=== PATIENT | male | born 1960 | race Caucasian/White ===

== ENCOUNTER 2024-09-18 20:24 | Emergency (ER) | payer OTHER, MEDICARE ==
[~2024-09-18] VITALS: Ht 177.8 cm; Wt 79.4 kg
[2024-09-18 20:45] VITALS: BP 137/95
[2024-09-18] MEDS ORDERED: Ibuprofen 400 MG Tab PO ONE (20:55)
[2024-09-18] MEDS ORDERED: Amoxicillin/Clavulanate K 875 MG Tab PO ONE (20:55)
[2024-09-18] MEDS ORDERED: RX Prepack 6 Tabs Oxycodone 5mg UD ONE (20:55)
[2024-09-18] MEDS ORDERED: Percocet 5-3251 EACH PO (22:10)
[2024-09-18] MEDS ORDERED: AMOCLA875 PO (22:10)
== END 2024-09-18 23:10 | disposition home or self-care (01) ==
LOC: ER 20:24
DX: S52.692A Other fracture of lower end of left ulna, initial encounter for closed fracture (principal); S61.452A Open bite of left hand, initial encounter; W54.0XXA Bitten by dog, initial encounter
CPT/HCPCS: 29125; 73090; 73100; 73130; 99283-25; A9270

== ENCOUNTER 2024-11-23 10:16 | Day surgery (SDC) | payer MEDICARE ==
[~2024-11-23] VITALS: Ht 177.8 cm; Wt 79.3 kg
[~2024-11-23 10:16] MED LIST: AMOCLA875 PO; Percocet 5-3251 EACH PO
[2024-11-23] MEDS ORDERED: CHANTIX1 MG (10:31)
[2024-11-23] MEDS ORDERED: OMEP20ER (10:31)
[2024-11-23] MEDS ORDERED: Lactated Ringer's 1,000 ML IV ONE ×2 (11:21→12:03)
[2024-11-23] MEDS ORDERED: propofoL 50 ML IV ONE (12:03)
--- NOTE | 2024-11-23 13:03 | NUR ---
11/23/24 8543 NASRIN JARQUIN PT PRESENTED TODAY WITH ARM CAST LEFT ARM AND BRUSED HIPS FROM DOG ATTACK. END NOTE
[2024-11-23 13:34] VITALS: BP 111/88
--- NOTE | 2024-11-23 13:47 | NUR ---
11/23/24 1347 Annemarie Becerra PT DENIED PAIN, NO C/O NAUSEA. PT ABLE TO TOLERATE FLUIDS WELL. PT'S AT BEDSIDE. PT EDUCATION PROVIDED. ALL QUESTIONS ANSWERED, CONCERNS ADDRESSED.
== END 2024-11-23 13:44 | disposition home or self-care (01) ==
LOC: ORSCSDS 10:16
PROVIDERS: Internal Medicine Gastroenterology
PROC: 0DB98ZX Excision of Duodenum, Via Natural or Artificial Opening Endoscopic, Diagnostic (ICD-10-PCS; principal; 2024-11-23 11:30)
PROC: 0DBL8ZX Excision of Transverse Colon, Via Natural or Artificial Opening Endoscopic, Diagnostic (ICD-10-PCS; principal; 2024-11-23 11:30)
DX: Z12.11 Encounter for screening for malignant neoplasm of colon (principal); R19.5 Other fecal abnormalities; K57.30 Diverticulosis of large intestine without perforation or abscess without bleeding; R13.10 Dysphagia, unspecified; D12.3 Benign neoplasm of transverse colon; F17.210 Nicotine dependence, cigarettes, uncomplicated; Z79.899 Other long term (current) drug therapy
CPT/HCPCS: 88305; J2704; J7120

== ENCOUNTER 2025-07-31 16:34 | Emergency (ER) | payer MEDICARE ==
[~2025-07-31] VITALS: Ht 177.8 cm; Wt 80.7 kg
[~2025-07-31 16:34] MED LIST changes: +CHANTIX1 MG; +OMEP20ER
[2025-07-31 19:28] VITALS: BP 119/94
[2025-07-31] MEDS ORDERED: RX Prepack 6 Tabs Oxycodone 5mg UD ONE (19:55)
[2025-07-31] MEDS ORDERED: Ketorolac Tromethamine 15mg Vial IM ONE (19:55)
== END 2025-07-31 20:16 | disposition home or self-care (01) ==
LOC: ER 16:34
DX: M25.552 Pain in left hip (principal); M25.512 Pain in left shoulder; W17.89XA Other fall from one level to another, initial encounter
CPT/HCPCS: 73030; 73502; 96372; 99283-25; A9270; J1885